=== PATIENT | male | born 1930 | race Caucasian/White ===

== ENCOUNTER 2017-07-09 09:41 | Day surgery (SDC) | payer MEDICARE ==
[2017-07-08 10:54] LABS: BASOPHILS % (AUTO) 0.2 % (0-1); EOSINOPHILS # (AUTO) 0.3 X10'3 (0-0.9); EOSINOPHILS % (AUTO) 4.3 % (0-6); HEMATOCRIT 41.7 % (42.0-52.0); HEMOGLOBIN 14.4 g/dl (14.0-17.9); LYMPHOCYTES # (AUTO) 0.9 X10'3 (1.1-4.8); MEAN CORPUSCULAR HEMOGLOBIN 34.5 PG (27.0-31.0); MEAN CORPUSCULAR HGB CONC 34.5 % (33.0-36.5); MEAN CORPUSCULAR VOLUME 99.9 FL (78-98); MEAN PLATELET VOLUME 8.3 FL (7.4-10.4); MONOCYTES # (AUTO) 0.4 X10'3 (0-0.9); MONOCYTES % (AUTO) 6.8 % (2-12); NEUTROPHILS # (AUTO) 4.7 X10'3 (1.8-7.7); NEUTROPHILS % (AUTO) 74.7 % (42-75); PLATELET COUNT 150 X10'3 (140-440); RED BLOOD COUNT 4.18 X10'6 (4.70-6.10); RED CELL DISTRIBUTION WIDTH 15.8 % (11.5-14.5); WHITE BLOOD COUNT 6.4 X10'3 (4.5-11.0)
[2017-07-08 11:10] LABS: PARTIAL THROMBOPLASTIN TIME 27 SECONDS (22-32); PROTHROMBIN TIME 10.6 SECONDS (9.0-12.0)
[2017-07-08 11:11] LABS: ALBUMIN 3.6 G/DL (3.4-5.0); ANION GAP 8 (8-16); BLOOD UREA NITROGEN 19 MG/DL (7-18); BUN/CREATININE RATIO 12.8 (5.4-32.0); CHLORIDE 101 MMOL/L (99-107); CREATININE 1.48 MG/DL (0.60-1.10); GLUCOSE 149 MG/DL (70-104); POTASSIUM 4.7 MMOL/L (3.5-5.1); SODIUM 138 MMOL/L (135-145); TOTAL CARBON DIOXIDE 28.6 MMOL/L (24-32); eGFR 45 ML/MIN
[~2017-07-09] VITALS: Ht 188 cm; Wt 87.5 kg
[2017-07-09] VITALS (10 sets, daily range): BP systolic 154–185; BP diastolic 71–87
[~2017-07-09 09:41] MED LIST: TAMS0.4C32 PO
[2017-07-09] MEDS ORDERED: CHOL100046 PO (10:02)
[2017-07-09] MEDS ORDERED: CYAN-19 PO (10:02)
[2017-07-09] MEDS ORDERED: OMEG1CAP46 PO (10:02)
[2017-07-09] MEDS ORDERED: MULT-1085 PO (10:02)
[2017-07-09] MEDS ORDERED: normal saline 1000ml 1,000 ML IV SCH (10:05)
[2017-07-09] MEDS ORDERED: fentaNYL/PF 50MCG/1 ML 2ML syringe ONE (12:01)
[2017-07-09] MEDS ORDERED: midazolam 2 mg/2 ml injection ONE (12:01)
[2017-07-09] MEDS ORDERED: LIDOcaine 1.5% w/epinephrine 1:200,000 5ml ampul ONE (12:02)
[2017-07-09] MEDS ORDERED: ceFAZolin 1GM/D5W- ADD-VANTAGE 50 ML IV ONE (12:02)
[2017-07-09] MEDS ORDERED: ceFAZolin 1000mg inj ONE ×2 (12:02)
[2017-07-09] MEDS ORDERED: HYDROcodone/acetaminophen 10/325mg tab PO PRN (14:35)
[2017-07-09] MEDS ORDERED: HYDROcodone/acetaminophen 5mg/325mg tablet PO PRN (14:35)
[2017-07-09] MEDS ORDERED: ceFAZolin 1GM/D5W- ADD-VANTAGE 50 ML IV SCH (18:00)
== END 2017-07-09 19:00 | disposition home or self-care (01) ==
LOC: SSTAY O 09:41
PROVIDERS: ATTEND Internal Medicine Cardiovascular Disease
DX: Z45.02 Encounter for adjustment and management of automatic implantable cardiac defibrillator (principal); I08.0 Rheumatic disorders of both mitral and aortic valves; I25.10 Atherosclerotic heart disease of native coronary artery without angina pectoris; I12.9 Hypertensive chronic kidney disease with stage 1 through stage 4 chronic kidney disease, or unspecified chronic kidney disease; J44.9 Chronic obstructive pulmonary disease, unspecified; N18.9 Chronic kidney disease, unspecified; E78.5 Hyperlipidemia, unspecified; Z98.890 Other specified postprocedural states; Z72.89 Other problems related to lifestyle; Z87.891 Personal history of nicotine dependence; Z96.642 Presence of left artificial hip joint; Z79.899 Other long term (current) drug therapy
CPT/HCPCS: 33228; 36415; 80048; 85025; 85610; 85730; 93005; 99152; 99153; A4565; A6449; C1785; C1894; J0690; J2250; J3010; J3490; J7030; A4620

== ENCOUNTER 2017-07-23 07:54 | Inpatient (IN) | payer MEDICARE ==
[~2017-07-23] VITALS: Ht 185.4 cm; Wt 87.0 kg
[~2017-07-23 07:54] MED LIST changes: +CHOL100046 PO; +CYAN-19 PO; +MULT-1085 PO; +OMEG1CAP46 PO
[2017-07-23] MEDS ORDERED: normal saline 1000ML IV soln IVB ONE (08:55)
[2017-07-23 09:20] LABS: BASOPHILS % (AUTO) 0.3 % (0-1); EOSINOPHILS # (AUTO) 0.2 X10'3 (0-0.9); EOSINOPHILS % (AUTO) 2.3 % (0-6); HEMATOCRIT 40.5 % (42.0-52.0); HEMOGLOBIN 13.8 g/dl (14.0-17.9); LYMPHOCYTES # (AUTO) 0.8 X10'3 (1.1-4.8); LYMPHOCYTES % (AUTO) 8.5 % (21-51); MEAN CORPUSCULAR HEMOGLOBIN 34.4 PG (27.0-31.0); MEAN CORPUSCULAR HGB CONC 34.1 % (33.0-36.5); MEAN CORPUSCULAR VOLUME 100.9 FL (78-98); MEAN PLATELET VOLUME 8.2 FL (7.4-10.4); MONOCYTES # (AUTO) 0.7 X10'3 (0-0.9); MONOCYTES % (AUTO) 7.1 % (2-12); NEUTROPHILS # (AUTO) 7.9 X10'3 (1.8-7.7); NEUTROPHILS % (AUTO) 81.8 % (42-75); PLATELET COUNT 182 X10'3 (140-440); RED BLOOD COUNT 4.01 X10'6 (4.70-6.10); RED CELL DISTRIBUTION WIDTH 15.7 % (11.5-14.5); WHITE BLOOD COUNT 9.6 X10'3 (4.5-11.0)
[2017-07-23 09:43] LABS: ALBUMIN 3.5 G/DL (3.4-5.0); ANION GAP 11 (8-16); BILIRUBIN,TOTAL 1.7 MG/DL (0.1-1.0); BLOOD UREA NITROGEN 16 MG/DL (7-18); BUN/CREATININE RATIO 10.9 (5.4-32.0); CALCIUM 9.1 MG/DL (8.5-10.1); CHLORIDE 101 MMOL/L (99-107); CREATININE 1.47 MG/DL (0.60-1.10); GLUCOSE 113 MG/DL (70-104); MAGNESIUM 1.8 MG/DL (1.5-2.4); POTASSIUM 4.3 MMOL/L (3.5-5.1); SODIUM 139 MMOL/L (135-145); TOTAL PROTEIN 7.7 G/DL (6.4-8.2); eGFR 45 ML/MIN
[2017-07-23 09:44] LABS: ALANINE AMINOTRANSFERASE 19 U/L (12-78); ALBUMIN/GLOBULIN RATIO 0.8 (1.1-1.5); ALKALINE PHOSPHATASE 58 IU/L (46-116); ASPARTATE AMINO TRANSFERASE 17 U/L (10-37)
[2017-07-23 10:31] LABS: INR 1.1 INR; PROTHROMBIN TIME 11.2 SECONDS (9.0-12.0)
[2017-07-23 12:46] LABS: CLARITY,URINE CLEAR (Clear); COLOR,URINE YELLOW (Yellow); GLUCOSE, URINE NEGATIVE (Neg); KETONES,URINE 40 mg/dl (Neg); LEUKOCYTE ESTERASE ,URINE SMALL (Neg); NITRITES, URINE NEGATIVE (Neg); OCCULT BLOOD,URINE NEGATIVE (Neg); PH,URINE 5.5 (4.8-8.0); PROTEIN,URINE TRACE mg/dl (Neg)
[2017-07-23 12:47] LABS: UA COLLECTION TYPE URINAL
[2017-07-23 12:51] LABS: SQUAMOUS EPITHELIAL CELL,UR MODERATE /LPF (FEW)
[2017-07-23 12:52] LABS: BACTERIA,URINE FEW /HPF (Neg); MUCUS STRANDS FEW /LPF (Neg); RBC,URINE 0-2 /HPF (0-2)
[2017-07-23] MEDS ORDERED: HYDROcodone/acetaminophen 5mg/325mg tablet PO PRN (13:15)
[2017-07-23] MEDS ORDERED: albuterol 2.5 MG/3 ML nebule NEB PRN (13:15)
[2017-07-23] MEDS ORDERED: acetaminophen 325mg tablet PO PRN (13:15)
[2017-07-23] MEDS ORDERED: magnesium hydroxide 30ml (MOM) UD suspension PO PRN (13:15)
[2017-07-23] MEDS ORDERED: mag hydrox/Alum hydrox/simeth 30ml oral suspension PO PRN (13:15)
[2017-07-23] MEDS ORDERED: ondansetron/PF 4mg/2ml inj IV PRN (13:15)
[2017-07-23] MEDS ORDERED: morphine 4 MG/ML inj SYRINge IV PRN (13:15)
[2017-07-23 13:48] LABS: PHOSPHORUS 4.1 MG/DL (2.3-4.5)
[2017-07-23 13:50] LABS: HEMOGLOBIN A1C 6.1 % (4.5-6.2)
[2017-07-23 15:05] VITALS: BP 178/81
[2017-07-23] MEDS ORDERED: [UNRECOGNIZED DRUG - CODE] (17:19)
[2017-07-23] MEDS ORDERED: BETA15CR4 (17:19)
[2017-07-23 19:20] VITALS: BP 127/60
[2017-07-23] MEDS: docusate sod 100mg capsule PO SCH (20:00)
[2017-07-23 23:00] VITALS: BP 144/61
[2017-07-24] VITALS (11 sets, daily range): BP systolic 90–158; BP diastolic 42–81
[2017-07-24 06:39] LABS: CHOL/HDL RATIO 2.3 (0.00-4.99); CHOLESTEROL 122 MG/DL (0-200); HDL CHOLESTEROL 53 MG/DL (35-60); LDL CHOLESTEROL 56 MG/DL (50-100); TRIGLYCERIDES 53 MG/DL (20-135)
[2017-07-24] MEDS: enoxaparin 40mg/0.4ml syringe SUBCUT SCH (07:30)
[2017-07-24] MEDS: docusate sod 100mg capsule PO SCH ×2 (07:40→21:18)
[2017-07-24] MEDS: aspirin 325mg tablet, delayed-release (Ecotrin) PO SCH (11:34)
[2017-07-24] MEDS: furosemide 20 MG/2 ML vial IV SCH ×2 (11:34→21:18)
[2017-07-24 15:37] LABS: BFSOURCE RIGHT PLEURAL FLD; PLEURAL FLUID PH 7.397 (7.63-7.65)
[2017-07-24 15:44] LABS: GLUCOSE,BODY FLUID 123 MG/DL; LDH,BODY FLUID 64 U/L; TOTAL PROTEIN,BODY FLUID 3.6 G/DL
[2017-07-24 16:05] LABS: BFAPPEAR CLEAR; BFCOLOR YELLOW; BFVOLUME 57 ML
[2017-07-24 16:08] LABS: BF RBC COUNT 4 /CU MM; BF WBC COUNT 143 /CU MM (0-1000)
[2017-07-24 16:10] LABS: LYMPHOCYTES,BODY FLUID 83 %; MONOCYTES,BODY FLUID 13 %; NEUTROPHILS,BODY FLUID 4 %
[2017-07-25 02:00] VITALS: BP 120/59
[2017-07-25 05:54] LABS: BASOPHILS % (AUTO) 0.1 % (0-1); EOSINOPHILS # (AUTO) 0.4 X10'3 (0-0.9); EOSINOPHILS % (AUTO) 3.3 % (0-6); HEMATOCRIT 38.1 % (42.0-52.0); HEMOGLOBIN 12.9 g/dl (14.0-17.9); LYMPHOCYTES # (AUTO) 0.8 X10'3 (1.1-4.8); LYMPHOCYTES % (AUTO) 7.3 % (21-51); MEAN CORPUSCULAR HEMOGLOBIN 34.3 PG (27.0-31.0); MEAN CORPUSCULAR VOLUME 100.8 FL (78-98); MONOCYTES % (AUTO) 9.8 % (2-12); NEUTROPHILS # (AUTO) 8.5 X10'3 (1.8-7.7); NEUTROPHILS % (AUTO) 79.5 % (42-75); PLATELET COUNT 184 X10'3 (140-440); RED BLOOD COUNT 3.78 X10'6 (4.70-6.10); RED CELL DISTRIBUTION WIDTH 14.9 % (11.5-14.5); WHITE BLOOD COUNT 10.7 X10'3 (4.5-11.0)
[2017-07-25 06:00] VITALS: BP 123/49
[2017-07-25 06:22] LABS: ALBUMIN 2.8 G/DL (3.4-5.0); ANION GAP 12 (8-16); BLOOD UREA NITROGEN 20 MG/DL (7-18); BUN/CREATININE RATIO 16.8 (5.4-32.0); CALCIUM 8.5 MG/DL (8.5-10.1); CHLORIDE 102 MMOL/L (99-107); CREATININE 1.19 MG/DL (0.60-1.10); GLUCOSE 108 MG/DL (70-104); POTASSIUM 3.8 MMOL/L (3.5-5.1); SODIUM 139 MMOL/L (135-145); TOTAL CARBON DIOXIDE 24.6 MMOL/L (24-32); eGFR 58 ML/MIN
[2017-07-25] MEDS: docusate sod 100mg capsule PO SCH ×2 (08:37→19:58)
[2017-07-25] MEDS: aspirin 325mg tablet, delayed-release (Ecotrin) PO SCH (08:37)
[2017-07-25] MEDS: furosemide 20 MG/2 ML vial IV SCH ×2 (08:37→16:49)
[2017-07-25] MEDS: enoxaparin 40mg/0.4ml syringe SUBCUT SCH (08:38)
[2017-07-25 11:00] VITALS: BP 124/63
[2017-07-25 15:00] VITALS: BP 96/43
[2017-07-25] MEDS: potassium Cl 20 mEq SR tablet PO SCH (16:49)
[2017-07-25 18:00] VITALS: BP 102/47
[2017-07-25 22:00] VITALS: BP 106/47
[2017-07-26] MEDS: furosemide 20 MG/2 ML vial IV SCH ×2 (00:28→09:02)
[2017-07-26 02:00] VITALS: BP_SYST 106; BP_SYST 134; BP_DIAS 50; BP_DIAS 86
[2017-07-26 06:00] VITALS: BP 113/46
[2017-07-26 06:52] LABS: ANION GAP 10 (8-16); BLOOD UREA NITROGEN 24 MG/DL (7-18); BUN/CREATININE RATIO 17.9 (5.4-32.0); CALCIUM 8.8 MG/DL (8.5-10.1); CHLORIDE 99 MMOL/L (99-107); CREATININE 1.34 MG/DL (0.60-1.10); GLUCOSE 125 MG/DL (70-104); POTASSIUM 3.6 MMOL/L (3.5-5.1); SODIUM 138 MMOL/L (135-145); TOTAL CARBON DIOXIDE 29.4 MMOL/L (24-32); eGFR 50 ML/MIN
[2017-07-26] MEDS: docusate sod 100mg capsule PO SCH (09:02)
[2017-07-26] MEDS: aspirin 325mg tablet, delayed-release (Ecotrin) PO SCH (09:02)
[2017-07-26] MEDS: potassium Cl 20 mEq SR tablet PO SCH (09:02)
[2017-07-26] MEDS: enoxaparin 40mg/0.4ml syringe SUBCUT SCH (09:03)
[2017-07-26 11:00] VITALS: BP 114/55
== END 2017-07-26 15:20 | DRG 292 ==
LOC: ER 07:54 → ED HOLD 13:13 → PCU 3S 19:18
PROVIDERS: ADMIT Internal Medicine; ATTEND Internal Medicine
PROC: BW241ZZ Computerized Tomography (CT Scan) of Chest and Abdomen using Low Osmolar Contrast (ICD-10-PCS; 2017-07-23)
PROC: 0W993ZX Drainage of Right Pleural Cavity, Percutaneous Approach, Diagnostic (ICD-10-PCS; principal; 2017-07-24)
DX: I50.31 Acute diastolic (congestive) heart failure (principal); J90 Pleural effusion, not elsewhere classified; E86.0 Dehydration; I48.91 Unspecified atrial fibrillation; D64.9 Anemia, unspecified; H91.90 Unspecified hearing loss, unspecified ear; Z79.899 Other long term (current) drug therapy; Z72.89 Other problems related to lifestyle; Z95.0 Presence of cardiac pacemaker; Z87.891 Personal history of nicotine dependence
CPT/HCPCS: 32555; 36415; 71045; 71250; 80048; 80053; 80061; 81001; 82945; 83036; 83605; 83615; 83735; 83880; 83986; 84100; 84145; 84157; 84439; 84443; 84484; 85025; 85610; 87040; 87070; 87075; 87088; 88108; 89051; 93005; 93306; 94640; 94760; 96360; 96361; 97110; 97116; 97161; 99285; J1650; J1940; J7030

== ENCOUNTER 2017-10-09 13:00 | Emergency (ER) | payer MEDICARE ==
[~2017-10-09] VITALS: Ht 182.9 cm; Wt 79.5 kg
[~2017-10-09 13:00] MED LIST changes: +BETA15CR4; +[UNRECOGNIZED DRUG - CODE]
[2017-10-09 13:56] LABS: BASOPHILS % (AUTO) 0.3 % (0-1); EOSINOPHILS # (AUTO) 0.4 X10'3 (0-0.9); EOSINOPHILS % (AUTO) 4.8 % (0-6); HEMATOCRIT 37.6 % (42.0-52.0); HEMOGLOBIN 12.7 g/dl (14.0-17.9); LYMPHOCYTES # (AUTO) 1.2 X10'3 (1.1-4.8); LYMPHOCYTES % (AUTO) 16.9 % (21-51); MEAN CORPUSCULAR HEMOGLOBIN 32.7 PG (27.0-31.0); MEAN CORPUSCULAR HGB CONC 33.9 % (33.0-36.5); MEAN CORPUSCULAR VOLUME 96.6 FL (78-98); MEAN PLATELET VOLUME 7.9 FL (7.4-10.4); MONOCYTES # (AUTO) 0.5 X10'3 (0-0.9); MONOCYTES % (AUTO) 6.3 % (2-12); NEUTROPHILS # (AUTO) 5.3 X10'3 (1.8-7.7); NEUTROPHILS % (AUTO) 71.7 % (42-75); PLATELET COUNT 257 X10'3 (140-440); RED BLOOD COUNT 3.89 X10'6 (4.70-6.10); RED CELL DISTRIBUTION WIDTH 15.4 % (11.5-14.5); WHITE BLOOD COUNT 7.4 X10'3 (4.5-11.0)
[2017-10-09 14:07] LABS: PARTIAL THROMBOPLASTIN TIME 28 SECONDS (22-32); PROTHROMBIN TIME 10.4 SECONDS (9.0-12.0)
[2017-10-09 14:13] LABS: ALANINE AMINOTRANSFERASE 16 U/L (12-78); ALBUMIN 3.6 G/DL (3.4-5.0); ALBUMIN/GLOBULIN RATIO 0.8 (1.1-1.5); ALKALINE PHOSPHATASE 72 IU/L (46-116); ANION GAP 9 (8-16); ASPARTATE AMINO TRANSFERASE 16 U/L (10-37); BILIRUBIN,TOTAL 0.7 MG/DL (0.1-1.0); BLOOD UREA NITROGEN 27 MG/DL (7-18); BUN/CREATININE RATIO 16.5 (5.4-32.0); CALCIUM 9.1 MG/DL (8.5-10.1); CHLORIDE 102 MMOL/L (99-107); CREATININE 1.64 MG/DL (0.60-1.10); GLUCOSE 116 MG/DL (70-104); POTASSIUM 4.2 MMOL/L (3.5-5.1); SODIUM 141 MMOL/L (135-145); TOTAL CARBON DIOXIDE 29.7 MMOL/L (24-32); eGFR 40 ML/MIN
[2017-10-09 14:19] LABS: MAGNESIUM 2.3 MG/DL (1.5-2.4)
[2017-10-09 15:30] VITALS: BP 112/56
== END 2017-10-09 15:19 | disposition home or self-care (01) ==
LOC: ER 13:00
DX: J90 Pleural effusion, not elsewhere classified (principal); I48.91 Unspecified atrial fibrillation; Z79.899 Other long term (current) drug therapy; Z95.0 Presence of cardiac pacemaker
CPT/HCPCS: 36415; 71045; 80053; 83605; 83735; 83880; 84100; 84484; 85025; 85610; 85730; 87040; 93005; 99285

== ENCOUNTER 2017-10-10 08:42 | Day surgery (SDC) | payer MEDICARE ==
[~2017-10-10] VITALS: Ht 182.9 cm; Wt 75.8 kg
[~2017-10-10 08:42] MED LIST changes: +LIDOcaine 1%/PF 5ML 10 MG/ML VIAL SQ STA
[2017-10-10 09:30] VITALS: BP 125/69
[2017-10-10 10:26] VITALS: BP 129/70
[2017-10-10 10:30] VITALS: BP 119/68
[2017-10-10 10:36] VITALS: BP 135/66
[2017-10-10 10:45] VITALS: BP 141/74
[2017-10-10 11:00] VITALS: BP 112/62
== END 2017-10-10 11:10 | disposition home or self-care (01) ==
LOC: SSTAY O 08:42
PROVIDERS: ATTEND Radiology Vascular & Interventional Radiology
DX: J90 Pleural effusion, not elsewhere classified (principal); I48.91 Unspecified atrial fibrillation; I10 Essential (primary) hypertension; N40.0 Benign prostatic hyperplasia without lower urinary tract symptoms; Z96.642 Presence of left artificial hip joint; Z72.89 Other problems related to lifestyle; Z86.19 Personal history of other infectious and parasitic diseases; Z95.0 Presence of cardiac pacemaker; Z87.891 Personal history of nicotine dependence; Z79.899 Other long term (current) drug therapy; Z98.890 Other specified postprocedural states
CPT/HCPCS: 32555; 71045; J2001

== ENCOUNTER 2018-06-06 08:45 | Inpatient (IN) | payer MEDICARE | END 2018-06-09 15:15 | LOC: ER 08:45 → ED HOLD 11:29 → ORTHO 4S 12:30 | DX: N39.0 Urinary tract infection, site not specified (principal); G93.40 Encephalopathy, unspecified; J90 Pleural effusion, not elsewhere classified ==

== ENCOUNTER 2018-06-17 21:35 | Emergency (ER) | payer MEDICARE ==
[~2018-06-17] VITALS: Ht 188 cm; Wt 79.5 kg
[~2018-06-17 21:35] MED LIST changes: +ASCO500C15 PO; +ASPI-12 PO; -BETA15CR4; +BETA15CR4 TOP; +CEFU250T95 PO; +DOCU100C41 PO; +FER325T PO; +FURO20TA4 PO; -LIDOcaine 1%/PF 5ML 10 MG/ML VIAL SQ STA; +MTHF PO; +MULT-1074 PO; -MULT-1085 PO; +NYSPWD TP; +POTA1SOL TOP; -[UNRECOGNIZED DRUG - CODE]; +[UNRECOGNIZED DRUG - OTHER] PO
--- NOTE | 2018-06-18 01:48 | NUR ---
pt waiting for [facility] to arrive for transport back to facility, attempted for hours to have [facility] transport pt but contacts between [facility] and pt family for payment were unsuccessful, pt sleeping quietly without c/o
[2018-06-18 03:52] VITALS: BP 158/85
== END 2018-06-18 03:54 | disposition home or self-care (01) ==
LOC: ER 21:36
DX: R33.9 Retention of urine, unspecified (principal); I48.91 Unspecified atrial fibrillation; Z95.0 Presence of cardiac pacemaker; Z98.890 Other specified postprocedural states; Z79.82 Long term (current) use of aspirin; Z79.899 Other long term (current) drug therapy
CPT/HCPCS: 99284

== ENCOUNTER 2018-07-14 15:25 | Emergency (ER) | payer MEDICARE ==
[~2018-07-14] VITALS: Ht 188 cm; Wt 77.3 kg
[2018-07-14 15:34] VITALS: BP 108/51
[2018-07-14 16:06] LABS: BASOPHILS # (AUTO) 0.1 X10'3 (0-0.2); EOSINOPHILS # (AUTO) 0.5 X10'3 (0-0.9); EOSINOPHILS % (AUTO) 6.5 % (0-6); HEMATOCRIT 34.4 % (42.0-52.0); HEMOGLOBIN 11.4 g/dl (14.0-17.9); LYMPHOCYTES # (AUTO) 1.5 X10'3 (1.1-4.8); MEAN CORPUSCULAR HEMOGLOBIN 30.6 PG (27.0-31.0); MEAN CORPUSCULAR HGB CONC 33.1 g/dL (33.0-36.5); MEAN CORPUSCULAR VOLUME 92.4 FL (78-98); MEAN PLATELET VOLUME 7.8 FL (7.4-10.4); MONOCYTES # (AUTO) 0.5 X10'3 (0-0.9); MONOCYTES % (AUTO) 6.9 % (2-12); NEUTROPHILS % (AUTO) 65.6 % (42-75); PLATELET COUNT 258 X10'3 (140-440); RED BLOOD COUNT 3.73 X10'6 (4.70-6.10); RED CELL DISTRIBUTION WIDTH 15.4 % (11.5-14.5); WHITE BLOOD COUNT 7.7 X10'3 (4.5-11.0)
[2018-07-14 16:13] LABS: CLARITY,URINE CLOUDY (Clear); COLOR,URINE YELLOW (Yellow); GLUCOSE, URINE NEGATIVE (Neg); KETONES,URINE NEGATIVE (Neg); LEUKOCYTE ESTERASE ,URINE LARGE (Neg); NITRITES, URINE POSITIVE (Neg); OCCULT BLOOD,URINE MODERATE (Neg); PH,URINE 6.5 (4.8-8.0); PROTEIN,URINE 100 mg/dl (Neg); UROBILINOGEN,URINE 0.2 E.U/dL (0.2-1.0)
[2018-07-14 16:16] LABS: ALANINE AMINOTRANSFERASE 11 U/L (12-78); ALBUMIN 3.3 G/DL (3.4-5.0); ALBUMIN/GLOBULIN RATIO 0.8 (1.1-1.5); ALKALINE PHOSPHATASE 57 IU/L (46-116); ANION GAP 4 (8-16); ASPARTATE AMINO TRANSFERASE 16 U/L (10-37); BILIRUBIN,TOTAL 0.4 MG/DL (0.1-1.0); BLOOD UREA NITROGEN 16 MG/DL (7-18); BUN/CREATININE RATIO 10.1 (5.4-32.0); CALCIUM 9.4 MG/DL (8.5-10.1); CHLORIDE 102 MMOL/L (99-107); CREATININE 1.59 MG/DL (0.60-1.10); GLUCOSE 110 MG/DL (70-104); POTASSIUM 4.5 MMOL/L (3.5-5.1); SODIUM 138 MMOL/L (135-145); TOTAL CARBON DIOXIDE 32.1 MMOL/L (24-32); TOTAL PROTEIN 7.5 G/DL (6.4-8.2); eGFR 41 ML/MIN
[2018-07-14 16:17] LABS: UA COLLECTION TYPE STRAIGHT CATH
[2018-07-14 16:20] LABS: WBC,URINE TNTC /HPF (0-4)
[2018-07-14 16:21] LABS: SQUAMOUS EPITHELIAL CELL,UR NONE SEEN /LPF (FEW)
[2018-07-14 16:22] LABS: MUCUS STRANDS FEW /LPF (Neg)
[2018-07-14 16:23] LABS: BACTERIA,URINE 3+ /HPF (Neg); TRANSITIONAL EPI CELLS,URINE FEW /HPF
[2018-07-14] MEDS ORDERED: CEPH-571 PO (16:38)
[2018-07-14] MEDS ORDERED: CefTRIAXone 1000mg IM Kit (w/lidocaine diluent) IM ONE (16:40)
== END 2018-07-14 17:04 | disposition home or self-care (01) ==
LOC: ER 15:26
DX: N39.0 Urinary tract infection, site not specified (principal); I12.9 Hypertensive chronic kidney disease with stage 1 through stage 4 chronic kidney disease, or unspecified chronic kidney disease; N18.9 Chronic kidney disease, unspecified; T83.518A Infection and inflammatory reaction due to other urinary catheter, initial encounter; I48.91 Unspecified atrial fibrillation; Z95.0 Presence of cardiac pacemaker; Z79.82 Long term (current) use of aspirin
CPT/HCPCS: 36415; 51702; 80053; 81001; 85025; 87077; 87088; 87186; 96372; 99284; P9612

== ENCOUNTER 2018-07-27 09:48 | Emergency (ER) | payer MEDICARE ==
[~2018-07-27] VITALS: Ht 182.9 cm; Wt 65.9 kg
[~2018-07-27 09:48] MED LIST changes: +CEPH-571 PO
[2018-07-27 09:52] VITALS: BP 143/73
[2018-07-27] MEDS ORDERED: LIDOcaine 2% 10ml TOPICAL JELLY (Urojet) MM ONE (12:00)
--- NOTE | 2018-07-27 12:30 | NUR ---
ATTEMPTED AT CALLING 2 [facility]ILY [facility] REGARDING TRANSPORT, NO ANSWER AT THIS TIME
--- NOTE | 2018-07-27 12:40 | NUR ---
[facility] HAS BEEN ARRANGED ETA 45 MINS.
[2018-07-27] MEDS ORDERED: normal saline 1000ml 1,000 ML IV ONE (12:50)
--- NOTE | 2018-07-27 14:11 | NUR ---
TC TO [facility]IVING [facility]. SPOKE WITH [facility] TO COMMUNICATE MEDICAL TREATMENT AND FOLLOW-UP DIRECTIONS. [facility] IS AWARE THAT PATIENT IS STILL HAVING BLOOD IN URINE AND FROM TIP OF PENIS. ASSISTED IVING WILL COMMUNICATE WITH FAMILY FOR FOLLOW UP NEEDS.
== END 2018-07-27 14:13 | disposition home or self-care (01) ==
LOC: ER 09:49
DX: S37.30XA Unspecified injury of urethra, initial encounter (principal); I48.91 Unspecified atrial fibrillation; Z98.890 Other specified postprocedural states; Z95.0 Presence of cardiac pacemaker; Z79.82 Long term (current) use of aspirin; Z79.899 Other long term (current) drug therapy; X58.XXXA Exposure to other specified factors, initial encounter; Y93.89 Activity, other specified; Y92.89 Other specified places as the place of occurrence of the external cause; Y99.8 Other external cause status
CPT/HCPCS: 51702; 99284; J7030

== ENCOUNTER 2018-08-07 15:23 | Emergency (ER) | payer MEDICARE ==
[~2018-08-07] VITALS: Ht 188 cm; Wt 77.3 kg
[2018-08-07 15:34] VITALS: BP 109/53
--- NOTE | 2018-08-07 16:40 | NUR ---
[facility] [phone]
--- NOTE | 2018-08-07 17:21 | NUR ---
changed cath bag over to leg bag
== END 2018-08-07 17:22 | disposition home or self-care (01) ==
LOC: ER 15:25
DX: T83.9XXA Unspecified complication of genitourinary prosthetic device, implant and graft, initial encounter (principal); I48.91 Unspecified atrial fibrillation; Z95.0 Presence of cardiac pacemaker; Z79.82 Long term (current) use of aspirin
CPT/HCPCS: 99284

== ENCOUNTER 2018-08-17 12:11 | Emergency (ER) | payer MEDICARE ==
[~2018-08-17] VITALS: Ht 188 cm; Wt 77.0 kg
--- NOTE | 2018-08-17 14:06 | NUR ---
PT'S FACILITY; [facility], WAS CALLED AND INFORMED THAT PT IS READY FOR DISCHARGE. PT DISCHARGE INSTRUCTIONS GIVEN TO [facility]. PT'S SON, CLEMENT COLÓN CALLED FOR TRANSPORTATION HOME AND ASKED IF THEY WILL BE TRANSPORTING PT HOME OR SHOULD [facility] BE CALLED, FAMILY STATES THEY WILL CALL BACK MOMENTARILY
--- NOTE | 2018-08-17 14:17 | NUR ---
CALL OUT TO [facility], WILL TRANSPORT PT. PT'S SON JOAQUÍN WILL PAY FOR TRANSPORT, PER FAMILY MEMBER
[2018-08-17 14:45] VITALS: BP 121/67
== END 2018-08-17 14:53 | disposition home or self-care (01) ==
LOC: ER 12:11
DX: J90 Pleural effusion, not elsewhere classified (principal); I48.91 Unspecified atrial fibrillation; Z95.0 Presence of cardiac pacemaker; Z79.82 Long term (current) use of aspirin
CPT/HCPCS: 71046; 99284